=== PATIENT | male | born 1930 | race Caucasian/White ===

== ENCOUNTER 2022-01-03 17:53 | Inpatient (IN) | payer OTHER ==
[~2022-01-03] VITALS: Ht 167.6 cm; Wt 63.5 kg
[2022-01-03] MEDS ORDERED: TIROSINT75 MCG (17:58)
[2022-01-03] MEDS ORDERED: PLAVIX75 MG (17:58)
[2022-01-03] MEDS ORDERED: ATORVASTATIN CA20 MG (17:58)
[2022-01-03] MEDS ORDERED: ISOSORBIDE MONO60 MG (17:58)
[2022-01-03] MEDS ORDERED: ATIVAN1 M1 (17:58)
[2022-01-03] MEDS ORDERED: AMIODARONE HCL100 MG (17:59)
--- NOTE | 2022-01-03 17:59 | NUR ---
SE RECIBE PTE ALERTA Y ORIENTADO EN PERSONA CON CN A 3LTS COLOCADA POR PERSONAL PARAMEDICO. SE MIDEN S/V A PTE. PTE SE COLOCA EN UNIDAD DE CRITICO.
--- NOTE | 2022-01-03 18:09 | NUR ---
MRS. PERRY EDUCA A PTE SOBRE TX MEDICO, SE FREDDIE MUESTRAS DE LABORATORIO UTILIZANDO MEDIDAS ASEPTICAS. SE COLCOA H/L EL CUAL SE ENCUENTRA PATENTE. SE ADMINISTRA MEDICAMENTOA PTE EL CUAL TOLERA. SE NOTIFICA ESTUDIO DE RX PENDIENTE A REALIZAR, SE NOTIFICAN ABGS PENDIENTE. SE COLOCA BROWN A PTE UTILIZANDO MEDIDAS ESTERILES. PTE SE CONTINUA MONITORIANDO POR CAMBIOS.
--- NOTE | 2022-01-03 23:48 | NUR ---
SE RECIBE PTE MASCULINO DE 89 YRS ALERTA CONCIENTE Y TRANQUILO EN CAMA CON BARANDAS ELEVADA, PTE CON IVF'S PATENTE Y ANGELICA DE EDEMA. SE LE JAMEE S/V LA CUAL SE DOCUEMTA . PTE SE OBSERVA BAJANDO TRIDIL 50/250 A 3 ML HRS. SE LE OBSERVA PTE CON FOLIE CATHETE CON UN OUPUT DE COLOR AMARILLO INTENSO. PTE AL MOMENTO ANGELICA DE DOLOR. SE MANTIENE EN CONSULTA CON EL JOSHUA ROY Y EL JAREN ROY CARDIOLOGO. SE MANTIENE BAJO OBSERVACION POR CAMBIOS.
--- NOTE | 2022-01-04 06:47 | NUR ---
PTE DESCANZA TODA LA NOCHE SIN PROBLEMA ALGUNO , EN [facility] DR.LUIS MANNING Y CARDIOLOGO. PTE REFIERE DOLOR AL ORINAL POR FOLIE. SE OBSERVA SEGRECIONES WADE EN AREA GENITAL P.
[2022-01-15] MEDS ORDERED: CLOPIDOGREL BIS75 MG PO (16:44)
[2022-01-15] MEDS ORDERED: XARELTO15 MG PO (16:44)
[2022-01-15] MEDS ORDERED: AMIODARONE HCL200 MG PO (16:44)
[2022-01-15] MEDS ORDERED: LIPITOR40 MG PO (16:45)
[2022-01-15] MEDS ORDERED: ISOSORBIDE MONO30 MG PO (16:45)
[2022-01-15] MEDS ORDERED: TOPROL XL25 M1 PO (16:46)
[2022-01-15] MEDS ORDERED: PANTOPRAZOLE SO40 MG PO (16:47)
[2022-01-15] MEDS ORDERED: INTESTINEX680 M1 PO (16:47)
[2022-01-15] MEDS ORDERED: LEVOTHYROXINE25 MCG PO (16:48)
[2022-01-15] MEDS ORDERED: VITAMIN D3125 MC2 PO (16:48)
[2022-01-15] MEDS ORDERED: LORAZEPAM0.5 MG PO (16:49)
[2022-01-15] MEDS ORDERED: ZOLPIDEM TARTRA10 MG PO (16:49)
== END 2022-01-16 06:04 | disposition home or self-care (01) | DRG 291 ==
LOC: ER 17:53 → ICU-2 01-04 08:39 → ICU 01-05 01:34 → MEDJ 01-07 15:04
PROVIDERS: ADMIT Internal Medicine; ATTEND Internal Medicine
PROC: 4A12X4Z Monitoring of Cardiac Electrical Activity, External Approach (ICD-10-PCS; principal; 2022-01-04)
PROC: 5A2204Z Restoration of Cardiac Rhythm, Single (ICD-10-PCS; 2022-01-14)
DX: I11.0 Hypertensive heart disease with heart failure (principal); I50.23 Acute on chronic systolic (congestive) heart failure; I25.10 Atherosclerotic heart disease of native coronary artery without angina pectoris; Z98.61 Coronary angioplasty status; M19.049 Primary osteoarthritis, unspecified hand; H91.8X1 Other specified hearing loss, right ear

== ENCOUNTER 2022-01-22 04:15 | Inpatient (IN) | payer OTHER ==
[~2022-01-22] VITALS: Ht 165.1 cm; Wt 49.9 kg
[~2022-01-22 04:15] MED LIST: AMIODARONE HCL100 MG; AMIODARONE HCL200 MG PO; ATIVAN1 M1; ATORVASTATIN CA20 MG; CLOPIDOGREL BIS75 MG PO; INTESTINEX680 M1 PO; ISOSORBIDE MONO30 MG PO; ISOSORBIDE MONO60 MG; LEVOTHYROXINE25 MCG PO; LIPITOR40 MG PO; LORAZEPAM0.5 MG PO; PANTOPRAZOLE SO40 MG PO; PLAVIX75 MG; TIROSINT75 MCG; TOPROL XL25 M1 PO; VITAMIN D3125 MC2 PO; XARELTO15 MG PO; ZOLPIDEM TARTRA10 MG PO
[2022-02-04] MEDS ORDERED: LASIX20 MG PO (16:54)
== END 2022-02-04 17:28 | disposition home or self-care (01) | DRG 208 ==
LOC: ER 04:15 → ICU-2 09:42 → ICU 09:42 → MEDJ 01-27 12:30 → ICU 01-27 12:32 → MEDJ 01-27 20:19
PROVIDERS: ADMIT Internal Medicine; ATTEND Internal Medicine
PROC: 5A1945Z Respiratory Ventilation, 24-96 Consecutive Hours (ICD-10-PCS; principal; 2022-01-22)
PROC: 0BH17EZ Insertion of Endotracheal Airway into Trachea, Via Natural or Artificial Opening (ICD-10-PCS; 2022-01-22)
PROC: BW28ZZZ Computerized Tomography (CT Scan) of Head (ICD-10-PCS; 2022-01-22)
PROC: B24BZZZ Ultrasonography of Heart with Aorta (ICD-10-PCS; 2022-01-22)
PROC: 02HV33Z Insertion of Infusion Device into Superior Vena Cava, Percutaneous Approach (ICD-10-PCS; 2022-01-22)
PROC: BW24ZZZ Computerized Tomography (CT Scan) of Chest and Abdomen (ICD-10-PCS; 2022-01-23)
PROC: 0W9B3ZZ Drainage of Left Pleural Cavity, Percutaneous Approach (ICD-10-PCS; 2022-01-24)
PROC: 0W993ZZ Drainage of Right Pleural Cavity, Percutaneous Approach (ICD-10-PCS; 2022-01-25)
PROC: 4A12X4Z Monitoring of Cardiac Electrical Activity, External Approach (ICD-10-PCS; 2022-01-27)
DX: J96.01 Acute respiratory failure with hypoxia (principal); I50.23 Acute on chronic systolic (congestive) heart failure; J16.8 Pneumonia due to other specified infectious organisms; J91.8 Pleural effusion in other conditions classified elsewhere; G93.1 Anoxic brain damage, not elsewhere classified; I24.9 Acute ischemic heart disease, unspecified; I11.0 Hypertensive heart disease with heart failure; I27.20 Pulmonary hypertension, unspecified; I25.5 Ischemic cardiomyopathy; K80.80 Other cholelithiasis without obstruction; E03.8 Other specified hypothyroidism; I25.10 Atherosclerotic heart disease of native coronary artery without angina pectoris; I25.2 Old myocardial infarction; Z95.810 Presence of automatic (implantable) cardiac defibrillator